=== PATIENT | female | born 2000 | race African-American/Black ===

== ENCOUNTER 2023-04-15 17:39 | Emergency (ER) | payer MEDICAID ==
[~2023-04-15] VITALS: Ht 152.4 cm; Wt 60.0 kg
[2023-04-15 17:52] VITALS: BP 104/64
== END 2023-04-15 21:35 | disposition left against medical advice (07) ==
LOC: ER 17:39
DX: Z53.21 Procedure and treatment not carried out due to patient leaving prior to being seen by health care provider (principal)
CPT/HCPCS: 99281